=== PATIENT | male | born 1980 | race Caucasian/White ===

== ENCOUNTER 2023-11-27 09:31 | Emergency (ER) | payer OTHER, SELFPAY ==
[2023-11-27 09:44] VITALS: BP 151/109; PULSE 81; RESP 16; TEMP 36.7; O2SAT 99
--- NOTE | 2023-11-27 10:05 | ED.EAR ---
HPI - Ear Problem General Chief complaint: Ear Stated complaint: Left Ear Pain Time Seen by Provider: 11/27/23 09:59 Source: patient, RN notes reviewed and old records reviewed Mode of arrival: ambulatory Limitations: no limitations History of Present Illness HPI Narrative: 43 year old male who presents to [facility] with complaints of left ear pain for 1 day duration with cold symptoms for the past 4-5 days which includes nasal congestion,drainage and cough. Patient reports that he has been taking some Kae seltzer cold medication with decongestant and some Tylenol for his discomfort. Patient reports no known fevers, chills or body aches.He states that his son has also had cold symptoms. MD Complaint: ear pain and ear discharge Location: left ear Duration: constant Severity: moderate Discharge from ear: Reports yes - clear Treatment prior to arrival: oral analgesic and other (decongestant) Related Data Home Medications Medication Instructions Recorded Confirmed levothyroxine 112 mcg tablet mcg 11/27/23 Allergies Allergy/AdvReac Type Severity Reaction Status Date / Time No Known Allergies Allergy Verified 11/27/23 09:42 Review of Systems Review of Systems: CONSTITUTIONAL: Denies malaise, chills, sweats, or fever. EYES: Denies visual changes, redness, or discharge. ENT: Reports rhinorrhea, congestion, no sinus pain,left otalgia and no sore throat. CARDIOVASCULAR: Denies chest pain, palpitations, or edema. RESPIRATORY: Reports cough.? Denies dyspnea. GASTROINTESTINAL: Denies abdominal pain, nausea, vomiting, diarrhea SKIN: Denies rash or itching. MUSCULOSKELETAL: Denies myalgia. NEUROLOGIC: Denies headache. All systems reviewed & are unremarkable except as noted in HPI and below PMFSH Past Medical History Medical History (Updated 11/28/23 @ 08:14 by Yoly Hutchinson NP) Hypothyroidism Social History Social History (Updated 11/28/23 @ 08:15 by Yoly Hutchinson NP) Smoking status: Never smoker Alcohol intake: current Alcohol use details: rare social Substance use: never Living arrangements: with family Gender identity (if verbalized by the patient): Male Comments At time of signature, agree with nursing past medical, surgical, social and family history. There is no relevant family history pertinent to the presenting complaint Exam Narrative: GENERAL: Well-appearing, well-nourished, and in no acute distress. HEAD: Normocephalic EYES: PERRLA, conjunctivae clear ENT: Nares clear, turbinates edematous and erythematous, clear discharge. Mucous membranes moist. Left TM red with perforation of TM with clear mucus drainage some redness of ear canal, Right TM pearly triplett with dull light reflex bilaterally; no tragal tenderness. Oropharynx erythematous without lesions. Tonsils not enlarged and without exudate,, no hoarseness, no trismus, uvula midline. NECK: Supple. No lymphadenopathy CHEST: Clear to auscultation, breath sounds equal. No wheezing, rhonchi, rales, or stridor. No respiratory distress, speaks in full sentences.cough noted SAO2 99% on room air HEART: Regular rate and rhythm. No murmur heard. SKIN: Warm, dry, no rash. NEURO: Alert and oriented x3. PSYCH: Normal mood and affect Course Course Emergency Course: Patient is aware of diagnosis, understands and agrees to treatment plan.? Anticipatory guidance given.? Patient agrees to follow-up as directed and is aware of reasons to seek care at the emergency department. Portions of this record may have been created with voice recognition software Level of Care: Express Care Visit Vital Signs Vital signs: Vital Signs Temperature 36.7 C 11/27/23 09:44 Pulse Rate 81 11/27/23 09:44 Respiratory Rate 16 11/27/23 09:44 Blood Pressure 151/109 H 11/27/23 09:44 Pulse Oximetry 99 11/27/23 09:44 Oxygen Delivery Room Air 11/27/23 09:44 Temperature 36.7 C 11/27/23 09:44 Pulse
== END 2023-11-27 10:18 | disposition home or self-care (01) ==
PROVIDERS: Emergency Provider Registered Nurse
DX: H66.92 Otitis media, unspecified, left ear (principal); H72.92 Unspecified perforation of tympanic membrane, left ear; E03.9 Hypothyroidism, unspecified
CPT/HCPCS: 99213; G0463

== ENCOUNTER 2024-03-17 07:36 | Day surgery (SDC) | payer OTHER, SELFPAY ==
[2023-12-06 08:07] VITALS: BMI 32.5
[2024-02-29 10:39] VITALS: BMI 30.7
--- NOTE | 2024-03-11 12:45 | PM.HPGS ---
History of Present Illness History of Present Illness Consent: Risks, benefits, and alternatives have been discussed and questions answered. Patient agrees to proceed with procedure. Chief complaint: Neoplasm Screening Narrative: Vamsi Pedroza is a 44 year old male who is referred for colon cancer screening. Review of Systems Review of Systems: All systems reviewed & are unremarkable except as noted in HPI and below PMFSH Past Medical History Medical History Hypothyroidism Family History Family History Father Malignant neoplasm of prostate Social History Social History Smoking status: Former smoker Tobacco type: cigarettes Alcohol intake: current Alcohol use details: rarely Substance use: never Substance use type: does not use Living arrangements: with family Gender identity (if verbalized by the patient): Male Spiritual care concerns: No Meds Home Medications and Allergies Home Medications Medication Instructions Recorded Confirmed Type levothyroxine 112 mcg tablet 112 mcg PO DAILY 11/27/23 03/17/24 History Allergies Allergy/AdvReac Type Severity Reaction Status Date / Time No Known Allergies Allergy Verified 02/29/24 10:38 Exam Resp: Auscultation: clear to auscultation bilaterally Cardio: Rate: regular rate Rhythm: regular rhythm GI: GI Palp: Yes Soft to palpation and No Tenderness to palpation present (GI) Assessment and Plan Assessment and plan (1) Colon cancer screening: Code(s): Z12.11 - Encounter for screening for malignant neoplasm of colon Status: Acute Assessment and Plan: Colonoscopy with possible biopsy or polypectomy or cautery or injection of substances.
[2024-03-17 08:56] VITALS: BP 132/95; PULSE 80; RESP 18; TEMP 36.9; O2SAT 97
[2024-03-17] MEDS: LACTATED RINGERS 1,000 ML 150 ML IV CONT (09:05)
--- NOTE | 2024-03-17 09:22 | WPDANESEPPF ---
Anes - Initial Pre Proc Eval Procedure: Operation Date: 03/17/24 09:30 Proposed Procedures p Screening Colonoscopy - Devan Pollock MD Date/Time: 03/17/24 09:22 Surgeon: Devan Pollock MD Pre Op Diagnosis: Neoplasm Screening Patient Data Age: 44 Gender: M Height: 1.68 m Weight: 87.6 kg Last Vital Signs Temp 36.9 C 03/17/24 08:56 Pulse 80 03/17/24 08:56 Resp 18 03/17/24 08:56 BP 132/95 H 03/17/24 08:56 Pulse Ox 97 03/17/24 08:56 O2 Del Method Room Air 03/17/24 08:56 Allergies Allergy/AdvReac Type Severity Reaction Status Date / Time No Known Allergies Allergy Verified 02/29/24 10:38 Home Medications Medication Instructions Recorded Confirmed Type levothyroxine 112 mcg tablet 112 mcg PO DAILY 11/27/23 03/17/24 History Patient hx anesthesia problems: none Family hx anesthesia problems: none Results Review: All pre-operative results and documents have been reviewed as part of the pre-operative evaluation. [facility] Past Medical History Medical History Hypothyroidism Family History Family History Father Malignant neoplasm of prostate Social History Social History Smoking status: Former smoker Tobacco type: cigarettes Alcohol intake: current Alcohol use details: rarely Substance use: never Substance use type: does not use Living arrangements: with family Gender identity (if verbalized by the patient): Male Spiritual care concerns: No Anes - Eval Final PreProcedure Day of Procedure 03/17/24 09:22 Patient weight: overweight Heart: regular rate and rhythm Lungs: clear to auscultation Airway: Mallampati scale class II Neurological: alert and oriented Last oral intake: >/= 8 hours ASA classification: II Emergent: no Anesthetic plan: proceed Anesthesia type and monitoring: general GIVS and standard monitoring Results Review: All pre-operative results and documents have been reviewed as part of the pre-operative evaluation. Informed Consent: The patient's anesthetic plan and its attendant risks and benefits were discussed with the patient/family/POA. Questions were solicited and answers provided to the satisfaction of the patient/family/POA.
[2024-03-17 09:44] VITALS: BP 102/86; PULSE 68; RESP 16; O2SAT 100
--- NOTE | 2024-03-17 09:51 | WPDANESPN ---
Anes - Prog Note Post-Op Date/Time: 03/17/24 09:51 Cardiovascular status: normal Respiratory status: normal Airway patency: baseline Mental status: baseline Post-Op hydration status: normal Vital Signs: Last Vital Signs Temp 36.9 C 03/17/24 08:56 Pulse 68 03/17/24 09:44 Resp 16 03/17/24 09:44 BP 102/86 03/17/24 09:44 Pulse Ox 100 03/17/24 09:44 O2 Del Method Room Air 03/17/24 09:44 Pain Score (VAS): 0/10 I/O: Intake & Output 03/16/24 03/17/24 03/17/24 23:59 07:59 15:59 Intake Total 200 Balance 200 Patient Feedback: Patient satisfied with anesthetic care.
[2024-03-17 09:54] VITALS: BP 105/73; PULSE 71; RESP 18; O2SAT 97
[2024-03-17 10:04] VITALS: BP 108/78; PULSE 66; RESP 18; O2SAT 98
== END 2024-03-17 10:32 | disposition home or self-care (01) ==
PROVIDERS: PCP Family Medicine; Visit Provider Internal Medicine Gastroenterology
PROC: 0DJD8ZZ Inspection of Lower Intestinal Tract, Via Natural or Artificial Opening Endoscopic (ICD-10-PCS; CPT 45378; principal; 2024-03-17 09:30)
DX: Z12.11 Encounter for screening for malignant neoplasm of colon (principal); K57.30 Diverticulosis of large intestine without perforation or abscess without bleeding; K64.8 Other hemorrhoids
CPT/HCPCS: 45378